=== PATIENT | male | born 1955 | race Caucasian/White ===

== ENCOUNTER 2020-02-24 11:47 | Inpatient (IN) ==
[2020-02-24] MEDS ORDERED: SODIUM CHLORIDE 0.9% 1,000 ML IV STA (12:41)
[2020-02-24] MEDS ORDERED: cefTRIAXone 1,000 MG in SODIUM CHLORIDE 0.9% 100 ML IV STA (12:53)
[2020-02-24 13:52] LABS: Basophils % 0.3 % (0.0-0.8); Eosinophils % 0.1 % (0.00-10.9); Hematocrit 44.5 VOL% (42.0-52.0); Hemoglobin 13.9 GM/DL (14.0-18.0); Immature Granulocytes % 1.3 %; Immature Granulocytes Absolute 0.19 #; Lymphocytes # 0.7 10*3/uL (1.4-4.0); Mean Corpuscular HGB Conc 31.2 GM/DL (32-36); Mean Corpuscular Volume 82.1 FL (87-102); Mean Platelet Volume 11.2 FL (9.6-12.0); Monocytes % 7.7 % (1.7-12.7); Neutrophils % 85.6 % (38.7-73.9); Platelet Count 163 T/CUMM (130-400); Red Blood Count 5.42 MC/CUMM (3.8-5.5); Red Cell Distribution Width 17.3 % (9.3-17.3); White Blood Count 14.1 T/CUMM (4-12)
[2020-02-24 14:03] LABS: INR 1.5; PT Patient Result 15.3 SECS (9.8-11.9); Partial Thromboplastin Time 31.3 SECS (23.9-33.8)
[2020-02-24 14:15] LABS: Alanine Aminotransferase 16 U/L (16-61); Albumin 3.6 G/DL (3.4-5.0); Alkaline Phosphatase 73 U/L (45-117); Amylase 66 U/L (25-115); Aspartate Amino Transferase 29 U/L (0-37); Blood Urea Nitrogen 20 MG/DL (7-18); Calcium 6.5 MG/DL (8.5-10.1); Estimated Glom Filtration Rate 53 ML/MIN; Glucose 82 MG/DL (74-106); Total Protein 7.8 G/DL (6.4-8.3)
[2020-02-24 14:17] LABS: Troponin I 0.181 NG/ML (0.00-0.045)
[2020-02-24] MEDS ORDERED: ALBUTEROL/IPRATROPIUM 3 ML NEB RESP TX STA (15:24)
[2020-02-24] MEDS ORDERED: FUROSEMIDE 20 MG/2 ML VIAL IV STA (15:52)
[2020-02-24] MEDS ORDERED: POTASSIUM CHLORIDE RIDER 10 MEQ in PREMIX 1 EACH IV PRN (16:20)
[2020-02-24] MEDS ORDERED: MAGNESIUM SULF RIDER 4 GM in PREMIX 1 EACH IV PRN (16:20)
[2020-02-24] MEDS ORDERED: MAGNESIUM SULF RIDER 2 GM in PREMIX 1 EACH IV PRN (16:20)
[2020-02-24] MEDS ORDERED: ONDANSETRON 4 MG/2 ML VIAL IV PRN (16:27)
[2020-02-24] MEDS ORDERED: GLUCAGON 1 MG VIAL IM PRN (16:27)
[2020-02-24] MEDS ORDERED: metroNIDAZOLE 500 MG/100 ML PREMIX IV ONE (17:07)
[2020-02-24 17:12] LABS: Apearance,Urine CLEAR (Clear); Bacteria,Urine Occasional /HPF (Few); Bilirubin,Urine Negative (Negative); Blood, Urine Small mg/dL (Negative); Glucose,Urine (UA) Negative (Negative); Ketones,Urine 5 mg/dL (Negative); Mucus,Urine Occasional /LPF (Occasional); Nitrite,Urine Negative (Negative); Protein,Urine >=500 MG/DL; RBC,Urine 3 /HPF (0-4); Urine Specific Gravity 1.025 (1.001-1.035); Urine Urobilinogen < 2.0 EU/DL (0.2-1.0); WBC,Urine 1 /HPF (0-6)
[2020-02-24] MEDS: metroNIDAZOLE INJ 500 MG in PREMIX 1 EACH IV SCH (17:12)
[2020-02-24 17:22] LABS: ABG Base Excess -2.2 MMOL/L (-2.5-2.5); ABG HCO3 22.5 MMOL/L (20-26); ABG Oxygen Saturation 94.1 % (95-100); ABG PCO2 26.9 MM HG (35-48); ABG PH 7.477 (7.35-7.45); ABG TCO2 17.3 MMOL/L (23-27)
[2020-02-24 17:25] LABS: Urine Color Yellow (Yellow)
[2020-02-24] MEDS ORDERED: MAGNESIUM SULF RIDER 4 GM in PREMIX 1 EACH IV ONE (18:00)
[2020-02-24] MEDS ORDERED: DEXTROSE 50% 25 GM/50 ML SYRINGE IV ONE (18:10)
[2020-02-24] MEDS: DEXTROSE 50% 25 GM/50 ML VIAL IV PRN ×2 (18:10→21:58)
[2020-02-24] MEDS: traZODone 50 MG TABLET PO SCH (20:52)
[2020-02-24] MEDS: carvediloL 3.125 MG TABLET PO SCH (20:52)
[2020-02-24] MEDS: ENOXAPARIN 40 MG/0.4 ML SYRINGE SUBCUT SCH (20:52)
[2020-02-24] MEDS: AMITRIPTYLINE 25 MG TABLET PO SCH (20:52)
[2020-02-24] MEDS: THEOPHYLLINE ER (24 HR) 400 MG TABLET PO SCH (20:53)
[2020-02-24] MEDS: GABAPENTIN 300 MG CAPSULE PO SCH (20:53)
[2020-02-24] MEDS ORDERED: DEXTROSE 10% 250 ML IV ONE (21:45)
[2020-02-24] MEDS: INSULIN LISPRO 100 UNIT/ML SUBCUT SCH (21:57)
[2020-02-25] MEDS: INSULIN LISPRO 100 UNIT/ML SUBCUT SCH ×6 (00:54→21:09)
[2020-02-25] MEDS: metroNIDAZOLE INJ 500 MG in PREMIX 1 EACH IV SCH ×3 (01:05→17:07)
[2020-02-25 01:42] LABS: Basophils % 0.2 % (0.0-0.8); Eosinophils % 0.1 % (0.00-10.9); Hematocrit 41.9 VOL% (42.0-52.0); Hemoglobin 13.3 GM/DL (14.0-18.0); Immature Granulocytes % 0.7 %; Immature Granulocytes Absolute 0.09 #; Lymphocytes # 0.6 10*3/uL (1.4-4.0); Lymphocytes % 4.8 % (21.2-54.2); Mean Corpuscular HGB Conc 31.7 GM/DL (32-36); Mean Corpuscular Volume 80.7 FL (87-102); Mean Platelet Volume 11.7 FL (9.6-12.0); Monocytes % 8.1 % (1.7-12.7); Neutrophils % 86.1 % (38.7-73.9); Platelet Count 148 T/CUMM (130-400); Red Blood Count 5.19 MC/CUMM (3.8-5.5); Red Cell Distribution Width 17.3 % (9.3-17.3); White Blood Count 12.7 T/CUMM (4-12)
[2020-02-25 02:02] LABS: Calcium 6.4 MG/DL (8.5-10.1); Eosinophils 1 % (0-10); Hypochromasia 2+; Lymphocytes 7 % (20-55); Platelet Estimate Normal; Segmented Neutrophils 85 % (50-85); Total Cells Counted 100
[2020-02-25 02:11] LABS: Anisocytosis 2+; Microcytosis 1+
[2020-02-25] MEDS: POTASSIUM CHLORIDE RIDER 10 MEQ in PREMIX 1 EACH IV PRN ×11 (02:23→23:29)
[2020-02-25] MEDS: DEXTROSE 50% 25 GM/50 ML VIAL IV PRN (07:20)
[2020-02-25] MEDS ORDERED: FUROSEMIDE 40 MG/4 ML VIAL IV SCH (08:00)
[2020-02-25] MEDS: FUROSEMIDE 20 MG/2 ML VIAL IV SCH (09:16)
[2020-02-25] MEDS: POTASSIUM CHLORIDE RIDER 10 MEQ in PREMIX 1 EACH IV SCH ×5 (10:37→16:52)
[2020-02-25] MEDS ORDERED: cefTRIAXone 1,000 MG in SYRINGE 1 EACH IV SCH (13:00)
[2020-02-25] MEDS: THEOPHYLLINE ER (24 HR) 400 MG TABLET PO SCH ×2 (13:41→22:08)
[2020-02-25] MEDS: TAMSULOSIN 0.4 MG CAPSULE PO SCH (13:41)
[2020-02-25] MEDS: DIGOXIN 0.125 MG TABLET PO SCH (13:41)
[2020-02-25] MEDS: carvediloL 3.125 MG TABLET PO SCH ×2 (13:41→22:03)
[2020-02-25] MEDS: GABAPENTIN 300 MG CAPSULE PO SCH (22:02)
[2020-02-25] MEDS: AMITRIPTYLINE 25 MG TABLET PO SCH (22:02)
[2020-02-25] MEDS: traZODone 50 MG TABLET PO SCH (22:02)
[2020-02-25] MEDS: ENOXAPARIN 40 MG/0.4 ML SYRINGE SUBCUT SCH (22:08)
[2020-02-26] MEDS: INSULIN LISPRO 100 UNIT/ML SUBCUT SCH ×3 (00:30→10:09)
[2020-02-26] MEDS: metroNIDAZOLE INJ 500 MG in PREMIX 1 EACH IV SCH ×2 (01:43→10:09)
[2020-02-26 05:17] LABS: Basophils % 0.2 % (0.0-0.8); Eosinophils # 0.1 10*3/uL (0.0-0.87); Eosinophils % 1.6 % (0.00-10.9); Hematocrit 38.3 VOL% (42.0-52.0); Immature Granulocytes % 0.5 %; Immature Granulocytes Absolute 0.03 #; Lymphocytes # 0.7 10*3/uL (1.4-4.0); Lymphocytes % 10.6 % (21.2-54.2); Mean Corpuscular HGB Conc 31.3 GM/DL (32-36); Mean Corpuscular Volume 82.9 FL (87-102); Mean Platelet Volume 12.3 FL (9.6-12.0); Neutrophils % 78.1 % (38.7-73.9); Platelet Count 116 T/CUMM (130-400); Red Blood Count 4.62 MC/CUMM (3.8-5.5); Red Cell Distribution Width 17.2 % (9.3-17.3); White Blood Count 6.1 T/CUMM (4-12)
[2020-02-26 05:37] LABS: Calcium 6.6 MG/DL (8.5-10.1); Osmolality,Calculated 277.5 MOS/KG (273-304)
[2020-02-26 06:07] LABS: Calcium 6.4 MG/DL (8.5-10.1); Osmolality,Calculated 273.8 MOS/KG (273-304)
[2020-02-26] MEDS: POTASSIUM CHLORIDE RIDER 10 MEQ in PREMIX 1 EACH IV PRN (06:17)
[2020-02-26] MEDS ORDERED: MAGNESIUM SULF RIDER 4 GM in PREMIX 1 EACH IV ONE (07:51)
[2020-02-26] MEDS ORDERED: POTASSIUM CHLORIDE 20 MEQ TABLET PO PRN (09:49)
[2020-02-26] MEDS ORDERED: MAGNESIUM OXIDE 400 MG TABLET PO SCH (10:00)
[2020-02-26] MEDS: carvediloL 3.125 MG TABLET PO SCH (10:09)
[2020-02-26] MEDS: TAMSULOSIN 0.4 MG CAPSULE PO SCH (10:09)
[2020-02-26] MEDS: DIGOXIN 0.125 MG TABLET PO SCH (10:09)
[2020-02-26] MEDS: FUROSEMIDE 20 MG/2 ML VIAL IV SCH (10:09)
[2020-02-26] MEDS: THEOPHYLLINE ER (24 HR) 400 MG TABLET PO SCH (10:10)
[2020-02-26 11:38] VITALS: BP 111/71
== END 2020-02-26 12:43 | disposition hospice, home (50) | DRG 871 ==
LOC: EDBD → EDUNIT# → N.ED 11:47 → N.EDINP 16:27 → N.TELES 18:35
PROVIDERS: ADMIT Internal Medicine; ATTEND Internal Medicine